=== PATIENT | female | born 1950 | race Caucasian/White ===

== ENCOUNTER 2019-06-09 14:37 | Outpatient (REF) | payer BC, SELFPAY ==
[2019-06-09 21:39] LABS: Hemoglobin A1C 6.1 % (4.5-6.2)
[2019-06-09 22:12] LABS: Vitamin B12 861 pg/mL (193-986)
[2019-06-11 14:29] LABS: Albumin 58.1 % (55.8-66.1); Comment SEE COMMENTS; Total Protein 8.1 g/dl (6.3-8.2)
== END 2019-06-09 14:57 ==
LOC: NCHCN 14:37
PROVIDERS: PCP Internal Medicine; Visit Provider Internal Medicine
DX: R61 Generalized hyperhidrosis (principal); Z00.00 Encounter for general adult medical examination without abnormal findings; R73.09 Other abnormal glucose; E27.1 Primary adrenocortical insufficiency; G60.9 Hereditary and idiopathic neuropathy, unspecified
CPT/HCPCS: 82607; 83036; 84165; 86320

== ENCOUNTER 2021-06-04 16:34 | Outpatient (REF) | payer BC, SELFPAY ==
[2021-06-04 20:34] LABS: C-Reactive Protein 1.91 mg/dL (0.0-0.3); Uric Acid 6.4 mg/dL (2.6-6.0)
[2021-06-06 10:43] LABS: Lyme Ab w Rflx to Lyme Confirm Negative (Negative)
== END 2021-06-04 16:35 | disposition home or self-care (01) ==
LOC: NCHCN 16:34
PROVIDERS: PCP Internal Medicine; Visit Provider Internal Medicine
DX: M11.80 Other specified crystal arthropathies, unspecified site (principal)
CPT/HCPCS: 84550; 86140; 86618

== ENCOUNTER 2021-11-29 19:05 | Outpatient (REF) | payer BC, SELFPAY ==
[2021-11-29 22:16] LABS: HCT 39.4 % (36.0-46.0); MCH 30.7 pg (27.0-33.0); MCV 93.1 fL (80-95); MPV 11.6 fL (8.0-11.0); Platelet Count 192 10^3/uL (130-400); RBC 4.23 10^6/uL (3.93-5.22); RDW 15.4 % (11.7-14.6); RDW-SD 52.3 fL; WBC 6.71 10^3/uL (4.4-10.8)
[2021-11-29 22:29] LABS: Hemoglobin A1C 6.1 % (<5.7)
[2021-11-29 22:35] LABS: ALT 50 U/L (14-59); AST 40 U/L (15-37); Albumin 3.9 g/dL (3.4-5.0); Alkaline Phosphatase 85 U/L (46-116); Anion Gap 17.8 mmol/L (3-11); BUN 22 mg/dL (7-18); Bilirubin, Total 0.5 mg/dL (0.2-1.0); CO2 23.2 mmol/L (21.0-32.0); Calcium 9.3 mg/dL (8.5-10.1); Chloride 101 mmol/L (98-107); Estimated GFR 54.66 (mL/min/1.73m2); Glucose 133 mg/dL (74-106); Potassium 3.8 mmol/L (3.5-5.1); Sodium 142 mmol/L (136-145); TSH 0.71 uIU/mL (0.36-3.74); Total Protein 7.3 g/dL (6.4-8.2)
[2021-12-03 13:32] LABS: Albumin 60.3 % (55.8-66.1)
== END 2021-11-29 19:06 | disposition home or self-care (01) ==
LOC: NCHCN 19:05
PROVIDERS: PCP Internal Medicine; Visit Provider Internal Medicine
DX: K74.60 Unspecified cirrhosis of liver (principal); G60.9 Hereditary and idiopathic neuropathy, unspecified
CPT/HCPCS: 80053; 85027; 83036; 84165; 84443

== ENCOUNTER 2023-03-03 14:32 | Outpatient (REF) | payer BC, SELFPAY ==
--- OUTSIDE RECORDS SUMMARY | 2023-03-03 14:38 | XMS_ITS | Continuity of Care Document ---
Author Name Unknown Organization [facility] Address [address] [place] [address] Care Team Providers Care Bargeman Name Role Phone Shaun Arredondo Primary Care Physician Encounter [facility] Date(s): 08/28/22 - 08/28/[address] [phone] Discharge Disposition: Home or Self Care Attending Physician: Shaun Arredondo MD Admitting Physician: Shaun Arredondo MD Referring Physician: Shaun Arredondo MD Allergies, Adverse Reactions, Alerts No Known Allergies Assessment and Plan Future Appointments Immunizations Given and Recorded Vaccine Date Status Refusal Reason Td(adult) unspecified formulation 12/11/18 Recorde d influenza, unspecified formulation 08/04/18 Record ed influenza, unspecified formulation 07/30/17 Record ed influenza, unspecified formulation 06/27/16 Record ed influenza, unspecified formulation 08/11/15 Record ed Hep B, unspecified formulation 03/05/17 Recorded Hep B, unspecified formulation 09/03/16 Recorded Hep B, unspecified formulation 08/05/16 Recorded Hep A, unspecified formulation 10/14/16 Recorded Hep A, unspecified formulation 05/08/15 Recorded pneumococcal, unspecified formulation 07/11/16 Rec orded zoster vaccine, inactivated 05/20/12 Recorded pneumococcal 23-polyvalent vaccine 02/01/10 Record ed pneumococcal 23-polyvalent vaccine 04/15/98 Record ed influenza virus vaccine, inactivated 08/31/09 Bart rded tetanus/diphth/pertuss (Tdap) adult/adol 12/29/07 Recorded tetanus-diphth toxoids (Td) adult/adol 04/15/98 Re corded Medications multivitamin adult, oral tablet in am, 0 Refill(s) Start Date: 03/26/22 Status: Ordered Problem List Condition Confirmation Course Effective Dates Status H ealth Status Informant Hamilton's disease Confirmed Active Adenomatous polyp of colon Confirmed Active Adrenal cortical hypofunction Confirmed Active Adult health examination Confirmed Active Alcoholism Confirmed Active Benign essential hypertension Confirmed Active Depressive disorder Confirmed Active Diverticulitis of colon Confirmed Active Gastroesophageal reflux disease Confirmed Active Long-term drug therapy Confirmed Active Lumbago with sciatica Confirmed Active Obesity Confirmed Active Obstructive sleep apnea syndrome 1 Confirmed Active Operation on retina Confirmed Active Osteoarthritis Confirmed Active Osteoarthritis of knee Confirmed Active Osteopenia Confirmed Active Pain in left foot Confirmed Active Prediabetes Confirmed Active Seasonal allergic rhinitis Confirmed Active 1BiPAP cm [place] Procedures Procedure Date Related Diagnosis Body Site Status Colonoscopy 1 05/05/19 Completed EGD - Esophagogastroduodenoscopy 2 03/16/06 Completed Appendectomy 3 09/14/77 Completed Tubal ligation 4 Complete d 1rectal polyp, diverticulosis; 02/03/2014; 02/02/2009; 12/21/2003; 02/04/1997; 2medium sized hiatal hernia, chronic gastritis 3with unilateral oophorectomy [id number]'s Social History Social History Type Response Tobacco Former tobacco user Tobacco Use:. .5 ppd per day. 20 year(s). Total pack years: 19. 1 Sex Female 1quit 1985 Patient Care team information Personnel Name: Aditya PSYCHIATRICShaun MD Address: Address: [id number] [place] [address]
--- OUTSIDE RECORDS SUMMARY | 2023-03-03 14:38 | XMS_ITS | Continuity of Care Document ---
Author Name Unknown Organization [facility] Address [address] [place] [address] Care Team Providers Care Branch Officer Name Role Phone Shaun Arredondo Primary Care Physician Encounter [facility] Date(s): 08/01/22 - 08/01/[address] [phone] Discharge Disposition: Home or Self Care Attending Physician: Shaun Arredondo MD Admitting Physician: Shaun Arredondo MD Referring Physician: Shaun Arredondo MD Allergies, Adverse Reactions, Alerts No Known Allergies Immunizations Given and Recorded Vaccine Date Status [...] Effective Dates Status H ealth Status Informant Rajan's disease Confirmed Active Adenomatous polyp of colon [...] Seasonal allergic rhinitis Confirmed Active 1BiPAP cm [place] Procedures Procedure Date Related Diagnosis Body Site Status Colonoscopy 1 05/05/19 Completed EGD - Esophagogastroduodenoscopy 2 03/16/06 Completed Appendectomy 3 09/14/77 Completed Tubal ligation 4 Complete d 1rectal polyp, diverticulosis; 02/03/2014; 02/02/2009; 12/21/2003; 02/04/1997; 2medium sized hiatal hernia, chronic gastritis 3with unilateral oophorectomy [id number]'s Social History Social History Type Response Tobacco Former tobacco user Tobacco Use:. .5 ppd per day. 20 year(s). Total pack years: 19. 1 Sex Female 1quit 1985 Patient Care team information Personnel Name: Aditya Shaun DAMON MD Address: Address: [address] [address]- [place]
[2023-03-03 19:42] LABS: HCT 37.5 % (36.0-46.0); HGB 12.2 g/dL (11.2-15.7); MCH 30.7 pg (27.0-33.0); MCHC 32.5 % (32.0-36.0); MCV 95 fL (80-95); MPV 11.6 fL (8.0-11.0); Platelet Count 179 10^3/uL (130-400); RBC 3.97 10^6/uL (3.93-5.22); RDW 15.5 % (11.7-14.6); RDW-SD 52.9 fL
[2023-03-03 20:01] LABS: ALT 62 U/L (14-59); AST 59 U/L (15-37); Albumin 3.8 g/dL (3.4-5.0); Alkaline Phosphatase 82 U/L (46-116); Anion Gap 11.4 mmol/L (3-11); BUN 20 mg/dL (7-18); Bilirubin, Total 0.4 mg/dL (0.2-1.0); CO2 27.6 mmol/L (21.0-32.0); Calcium 9.5 mg/dL (8.5-10.1); Calculated LDL 146 mg/dL (<100); Chloride 101 mmol/L (98-107); Cholesterol 244 mg/dL (<200); Estimated GFR 59.86 (mL/min/1.73m2); Glucose 126 mg/dL (74-106); HDL Cholesterol 56 mg/dL (40-60); Potassium 4.5 mmol/L (3.5-5.1); Sodium 140 mmol/L (136-145); Total Protein 7.1 g/dL (6.4-8.2); Triglyceride 211 mg/dL (<150)
[2023-03-04 19:16] LABS: Parathyroid Hormone,Intact 26 pg/mL (19-88)
== END 2023-03-03 14:33 | disposition home or self-care (01) ==
LOC: NCHCN 14:32
PROVIDERS: PCP Internal Medicine; Visit Provider Internal Medicine
DX: R53.83 Other fatigue (principal); R73.03 Prediabetes; E83.52 Hypercalcemia; K74.60 Unspecified cirrhosis of liver; M17.0 Bilateral primary osteoarthritis of knee; E78.00 Pure hypercholesterolemia, unspecified
CPT/HCPCS: 80053; 80061; 85027; 83970

== ENCOUNTER 2023-10-02 19:53 | Outpatient (REF) | payer BC, SELFPAY ==
[2023-10-02 19:05] LABS: Hemoglobin A1C 5.5 % (<5.7)
[2023-10-02 19:07] LABS: Anion Gap 7.2 mmol/L (3-11); BUN 26 mg/dL (7-18); CO2 28.8 mmol/L (21.0-32.0); CREATININE 1.4 mg/dL (0.55-1.02); Calcium 10.4 mg/dL (8.5-10.1); Chloride 97 mmol/L (98-107); Estimated GFR 39.97 (mL/min/1.73m2); Glucose 109 mg/dL (74-106); Potassium 4.7 mmol/L (3.5-5.1); Sodium 133 mmol/L (136-145); TSH 0.73 uIU/mL (0.36-3.74)
== END 2023-10-02 19:54 | disposition home or self-care (01) ==
LOC: NCHCN 19:53
PROVIDERS: PCP Internal Medicine; Visit Provider Internal Medicine
DX: E11.9 Type 2 diabetes mellitus without complications (principal); R25.1 Tremor, unspecified
CPT/HCPCS: 80048; 83036; 84443

== ENCOUNTER 2024-03-04 16:01 | Outpatient (REF) | payer BC, SELFPAY ==
[2024-03-04 19:10] LABS: ALT 24 U/L (14-59); AST 22 U/L (15-37); Albumin 3.9 g/dL (3.4-5.0); Alkaline Phosphatase 60 U/L (46-116); Anion Gap 4.5 mmol/L (3-11); BUN 20 mg/dL (7-18); Bilirubin, Total 0.68 mg/dL (0.2-1.0); CO2 31.5 mmol/L (21.0-32.0); CREATININE 1.4 mg/dL (0.55-1.02); Calcium 9.9 mg/dL (8.5-10.1); Chloride 98 mmol/L (98-107); Estimated GFR 39.73 (mL/min/1.73m2); Glucose 97 mg/dL (74-106); Magnesium 1.9 mg/dL (1.8-2.4); Potassium 4.8 mmol/L (3.5-5.1); Sodium 134 mmol/L (136-145); Total Protein 7.3 g/dL (6.4-8.2)
== END 2024-03-04 16:02 | disposition home or self-care (01) ==
LOC: NCHCN 16:01
PROVIDERS: PCP Internal Medicine; Visit Provider Internal Medicine
DX: R63.4 Abnormal weight loss (principal)
CPT/HCPCS: 80053; 83735

== ENCOUNTER 2025-04-04 00:42 | Outpatient (CLI) | payer BC, SELFPAY ==
--- NOTE | 2025-04-04 06:30 | DI.MRI_ITS ---
Exam(s) MR BRAIN WO EXAM: MR BRAIN WO CLINICAL HISTORY: memory changes,r41.3 TECHNIQUE: Multiplanar multisequence MRI of the brain was performed. COMPARISON: No exams were available for comparison FINDINGS: VENTRICLES AND EXTRA AXIAL SPACES: Normal in size and morphology for the patient's age. MIDLINE SHIFT: None. CEREBRAL PARENCHYMA: No focus of restricted diffusion to suggest acute infarct. No space-occupying lesion identified. Mild to moderate atrophy. Mild scattered foci of high signal in the white matter consistent with sequela of chronic microvascular disease. BRAINSTEM/CEREBELLUM: Normal. VISUALIZED PARANASAL SINUSES: Clear. MASTOIDS:Clear. Vasculature: Normal flow void. PITUITARY GLAND: Partial empty sella. ORBITS: Deformity of the posterior left globe. IMPRESSION: Mild white matter changes likely reflecting microvascular disease. Deformity of the left posterior globe. DATA REPOSITORY:
== END 2025-04-04 01:02 ==
PROVIDERS: PCP Family Medicine; Visit Provider Psychiatry & Neurology Neurology
DX: R41.3 Other amnesia (principal); R93.0 Abnormal findings on diagnostic imaging of skull and head, not elsewhere classified
CPT/HCPCS: 70551